=== PATIENT | male | born 1990 | race Caucasian/White ===

== ENCOUNTER 2017-08-07 00:46 | Emergency (ER) | payer BC, OTHER ==
[2017-08-07] MEDS ORDERED: KETOROLAC TROMETHAMINE 60 MG/2 ML VIAL IM ONE (00:59)
--- NOTE | 2017-08-07 00:59 | PDOC ---
History of Present Illness - General Chief Complaint: Ear Problem Stated Complaint: RT EAR PAIN Time Seen by Provider: 08/07/17 00:48 - History of Present Illness Initial Comments: This 27-year-old man with a history of depression and previous ear infections but no other significant past medical history presents with 3 day history of progressive right ear pain. Patient states that he has a history of cerumen accumulation in his ears with does not use cotton swabs or other instruments to clean out his ears, using hydrogen peroxide flushes to remove the cerumen. He denies using earbuds or other devices in the ear canal. 3 days ago, he began to have discomfort in the ear, especially with movement of the external portion of the ear. There was no discharge noted from the canal. He saw his doctor yesterday and Augmentin was prescribed. The patient has been taking the antibiotic as prescribed since yesterday. Over the last 24 hours, patient has had an increase in pain and swelling in his ear. He denies headache/stiff neck/fever. He has mild pain on opening his jaw but no pain or difficulty with swallowing. He states that nonsteroidal anti- inflammatory medications "do not work" and he takes Tylenol as needed for pain. Last dose was approximately 5 PM today. Past History - Past Medical History Allergies/Adverse Reactions: Allergies Allergy/AdvReac Type Severity Reaction Status Date / Time avocado [Avocado] Allergy Verified 12/16/13 23:01 Fish Containing Products Allergy Verified 12/16/13 23:01 Home Medications: Ambulatory Orders Antipyrine-Benzocaine Ear Drop [Auralgan -] 2 drop AU TID #1 bottle 12/17/13 Diclofenac Sodium [Voltaren -] 75 mg PO BID #20 tablet. 08/07/17 - Suicide/Smoking/Psychosocial Hx Smoking History: Never smoked Review of Systems - Review of Systems Able to Perform ROS?: Yes Comments:: 12 point review of systems is negative except for what is noted in the history of present illness *Physical Exam - Physical Exam Comments: GENERAL: HEAD: Normal with no signs of trauma. EYES: PERRLA, EOMI, sclera anicteric, conjunctiva clear. ENT: Left ear normal Right ear-moderate edema external ear with pain increased on movement of the external ear Auditory canal edematous and mildly erythematous; unable to visualize the TM Pharynx-no masses; uvula midline; no erythema or exudates; tonsils mildly edematous NECK: Normal range of motion, supple,no JVD or masses. Moderately tender lymphadenopathy right anterior cervical area LUNGS: Breath sounds equal, clear to auscultation bilaterally. No wheezes, and no crackles. Medical Decision Making - Medical Decision Making This 27-year-old man currently taking Augmentin 875/125 twice a day as prescribed by his private doctor yesterday has progressive pain in his right ear. Exam reveals edema of the external ear as well as pain with movement of the ear. The visible portion of the auditory canal is likewise edematous and erythematous. TM is unable to be visualized. There is no meningismus or neck masses; pharynx is clear without erythema or masses. Lungs are clear Clinical presentation most consistent with an otitis externa of the right ear; he may also have otitis media. He is currently taking Augmentin and this will be continued. Cortisporin otic suspension started: 4 drops were placed in the right ear canal and patient will continue this 4 times a day for the next week. Toradol 60 mg IM administered. Diclofenac 75 mg twice a day as needed was transmitted to his pharmacy. Patient has not been seen by ear nose and throat physician in the past. He will be given referral information for Dr. Wilman tom. *DC/Admit/Observation/Transfer Diagnosis at time of Disposition: Otitis externa of right ear Qualifiers: Otitis externa type: unspecified type Chronicity: acute Qualified Code(s): H60.501 - Unspecified acute noninfective otitis externa, right ear - Discharge Dispostion Disposition: HOME Condition at time of disposition: Stable - Prescriptions Prescriptions: Diclofenac Sodium [Voltaren -] 75 mg PO BID #20 tablet.dr - Referrals Referrals: Gonzalez Stovall MD [Staff Physician] - - Patient Instructions Printed Discharge Instructions: Otitis Externa Additional Instructions: Cortisporin otic suspension 4 drops in right ear 4 times a day for one week Continue Augmentin as prescribed by your general doctor Continue extra strength Tylenol as needed Diclofenac 75 mg twice a day with food as needed Follow-up with ear/nose/throat group (Dr. Stovall) within the next 3-4 days Return to ER if you have more severe pain/stiff neck/high fever/difficulty swallowing - Post Discharge Activity
[2017-08-07] MEDS ORDERED: KETOROLAC TROMETHAMINE 60 MG/2 ML VIAL ONE (01:08)
[2017-08-07] MEDS ORDERED: NEOMYCIN/POLYMYXN/HC OTIC SUSPENSION 10 ML BOTTLE ONE (01:08)
[2017-08-07 01:26] VITALS: BP 135/79; PULSE 102; TEMP 100.4; BMI 46.7
== END 2017-08-07 01:45 | disposition home or self-care (01) ==
LOC: FER 00:46
PROC: 3E023GC Introduction of Other Therapeutic Substance into Muscle, Percutaneous Approach (ICD-10-PCS; principal; 2017-08-07)
DX: H60.501 Unspecified acute noninfective otitis externa, right ear (principal)
CPT/HCPCS: 99281-25

== ENCOUNTER 2023-06-10 16:37 | Emergency (ER) | payer OTHER ==
[2023-06-10 16:49] VITALS: BP 120/78; PULSE 101; RESP 18; TEMP 98.2; BMI 46.2
[2023-06-10] MEDS ORDERED: ACETAMINOPHEN 500 MG TABLET (FP) PO ONE (17:07)
[2023-06-10] MEDS ORDERED: KETOROLAC TROMETHAMINE 30 MG/1 ML VIAL IM ONE (17:07)
[2023-06-10] MEDS ORDERED: KETOROLAC TROMETHAMINE 30 MG/1 ML VIAL ONE (17:14)
[2023-06-10] MEDS ORDERED: ACETAMINOPHEN 500 MG TABLET (FP) ONE (17:14)
== END 2023-06-10 17:30 | disposition home or self-care (01) ==
LOC: JERFT 16:37
PROC: 3E0233Z Introduction of Anti-inflammatory into Muscle, Percutaneous Approach (ICD-10-PCS; principal; 2023-06-10)
DX: M25.512 Pain in left shoulder (principal)
CPT/HCPCS: 99284-25